=== PATIENT | female | born 1995 | race Caucasian/White ===

== ENCOUNTER 2019-06-09 20:42 | Emergency (ER) | payer OTHER ==
--- NOTE | 2019-06-09 21:44 | PDOC ---
History of Present Illness - General Chief Complaint: Syncope/Near Syncope Stated Complaint: SYNCOPE - History of Present Illness Initial Comments: The pt is a 24F w/ no PMH presents for evaluation s/p syncopal episode. Pt reports feeling lightheaded, asked for help, and was assisted down. Witnessed syncope, and witnesses report LOC for approx 10 sec. No head trauma Pt denies any pain or symptoms at this time Denies recent illness 06/09/19 23:11 Past History - Past Medical History Allergies/Adverse Reactions: Allergies Allergy/AdvReac Type Severity Reaction Status Date / Time No Known Allergies Allergy Verified 06/09/19 22:20 Home Medications: Ambulatory Orders NK [No Known Home Medication] 06/09/19 Review of Systems - Review of Systems Able to Perform ROS?: Yes Comments:: GENERAL/CONSTITUTIONAL: No fever or chills. No weakness HEAD, EYES, EARS, NOSE AND THROAT: No change in vision. No change in hearing. No sore throat CARDIOVASCULAR: No chest pain or shortness of breath RESPIRATORY: Denies cough, hemoptysis GASTROINTESTINAL: No nausea, vomiting, diarrhea or constipation GENITOURINARY: No dysuria, frequency, or change in urination MUSCULOSKELETAL: No joint or muscle swelling or pain. No neck or back pain SKIN: No rash NEUROLOGIC: No headache, vertigo, or change in strength/sensation ENDOCRINE: No increased thirst. No abnormal weight change HEMATOLOGIC/LYMPHATIC: No anemia, easy bleeding, or history of blood clots ALLERGIC/IMMUNOLOGIC: No hives or skin allergy 06/09/19 21:44 Is the patient limited [place] proficient: No *Physical Exam - Physical Exam GENERAL: Awake, alert, and oriented to person/place/time, in no acute distress HEAD: No signs of trauma, normoc ephalic, atraumatic EYES: PERRLA, EOMI, sclera anicteric, conjunctiva clear ENT: Hearing grossly normal, nares patent, oropharynx clear without exudates. No uvular deviation. Moist mucosa LUNGS: No distress, speaks in full sentences, clear to auscultation bilaterally HEART: Regular rate and rhythm, normal S1 and S2, no murmurs appreciated, peripheral pulses normal and equal bilaterally ABDOMEN: Soft, nontender, normoactive bowel sounds. No guarding, no rebound EXTREMITIES: Normal inspection, Normal range of motion, no edema. No clubbing or cyanosis NEUROLOGICAL: Cranial nerves II through XII grossly intact. Normal speech, normal gait, no focal sensorimotor deficits SKIN: Warm, Dry 06/09/19 21:44 ED Treatment Course - LABORATORY CBC & Chemistry Diagram: 06/09/19 22:00 06/09/19 22:00 Medical Decision Making - Medical Decision Making The pt is a 24F w/ no reported PMH who presents for evaluation s/p syncopal episode. Pt denies hitting her head as she was able to call for help and was lower to the floor. Currently feels at baseline ED Course CMP, CBC, Serum preg ECG ECG w/ sinus tachy; HR 113; QTc 460; no axis deviation, no TWI, no ABDOULAYE 06/09/19 22:06 Labs unremarkable Pt feels at her baseline No dizziness with standing and ambulating in ED with stable gait Plan for D/C w/ PCP f/u Discharge instructions and return precautions given Patient in agreement and verbalized understanding Dispo: Home 06/09/19 23:13 Discharge - Discharge Information Problems reviewed: Yes Clinical Impression/Diagnosis: Syncope Qualifiers: Syncope type: unspecified Qualified Code(s): R55 - Syncope and collapse Disposition: HOME - Admission No - Follow up/Referral Referrals: ON STAFF,NOT [Primary Care Provider] - - Patient Discharge Instructions Patient Printed Discharge Instructions: DI for Syncope in Adults (Fainting) Additional Instructions: You were seen in the Emergency Department for evaluation after a syncopal episode (passing out). Your labs were unremarkable. Review the handout provided at discharge. Follow up with your primary care provider this week. Return to the Emergency Department if you develop fevers, chest pain, trouble breathing, repeat episodes of passing out, worsening symptoms, or any new/concerning symptoms. - Post Discharge Activity
--- NOTE | 2019-06-09 21:48 | PDOC ---
Attending Attestation - Resident Resident Name: Raleigh Quinn - ED Attending Attestation I have performed the following: I have examined & evaluated the patient, The case was reviewed & discussed with the resident, I agree w/resident's findings & plan - HPI HPI: 06/09/19 22:06 Pt walked up the steps at home today and she felt weak and passed out. SHe was caught by family and boyfriend. She had momentary LOC x 10 secs with twitching of the left leg. SHe has eaten today byut she had little to drink. No drugs, alcohol or tobacco use. She just got over her menses yesterday and she doesn't have a heavy flow. Pt has no fever and she denies flu like sx - Physicial Exam PE: 06/09/19 22:09 Heart tachy; reg rhythm lungs clear. Abd soft NT ND no flank pain neuro exam normal; cn 2-12 intact HEENT normal Afebrile - Medical Decision Making 06/10/19 20:26 Labs normal; pt feels better with meds and hydration She is not .
[2019-06-09 22:14] LABS: BASO % 0.4 % (0-2.0); EOS % 0.1 % (0-4.5); HEMATOCRIT 34.9 % (32.4-45.2); HEMOGLOBIN 11.7 GM/dL (10.7-15.3); LYMPH % 5.4 % (8-40); MCH 29.5 pg (25.7-33.7); MCHC 33.6 g/dl (32.0-36.0); MEAN CELL VOLUME 87.9 fl (80-96); MEAN PLT VOLUME 7.8 fl (7.5-11.1); MONO % 4.6 % (3.8-10.2); NEUT % 89.5 % (42.8-82.8); PLATELET COUNT 231 K/MM3 (134-434); RBC 3.98 M/mm3 (3.60-5.2); RDW 13.4 % (11.6-15.6); WHITE BLOOD COUNT 12.5 K/mm3 (4.0-10.0)
[2019-06-09 22:20] VITALS: TEMP 98.8; BMI 22.1
[2019-06-09 22:47] LABS: ALBUMIN 3.7 g/dl (3.4-5.0); BILIRUBIN,TOTAL 0.7 mg/dL (0.2-1); BLOOD UREA NITROGEN 18.1 mg/dL (7-18); CALCIUM 8.7 mg/dL (8.5-10.1); CREATININE 0.7 mg/dL (0.55-1.3); TOT PROT 7.1 g/dl (6.4-8.2)
[2019-06-09 23:40] VITALS: BP 100/55; PULSE 112
--- NOTE | 2019-06-10 13:14 | EKG ---
Test Reason : Blood Pressure : / mmHG Vent. Rate : 113 BPM Atrial Rate : 113 BPM P-R Int : 136 ms QRS Dur : 080 ms QT Int : 336 ms P-R-T Axes : 068 072 046 degrees QTc Int : 460 ms SINUS TACHYCARDIA OTHERWISE NORMAL ECG NO PREVIOUS ECGS AVAILABLE Confirmed by ERIC DERAS MD ([id number]) on 06/10/2019 1:14:36 PM Referred By: Confirmed By:ERIC DERAS MD
== END 2019-06-09 23:40 | disposition home or self-care (01) ==
LOC: JER 20:42
DX: R55 Syncope and collapse (principal)
CPT/HCPCS: 36415; 80053; 84703; 85025; 93005; 93010; 99285-25